=== PATIENT | female | born 2000 | race Caucasian/White ===

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

== ENCOUNTER 2024-02-13 20:44 | Emergency (ER) | payer MEDICAID, SELFPAY ==
[2024-02-13 20:52] VITALS: BP 134/87; PULSE 83; RESP 16; TEMP 36.8; O2SAT 99; BMI 35.4
--- NOTE | 2024-02-13 20:55 | ED.BACK ---
HPI - Back Pain/Injury General Chief Complaint: Back Pain/Injury Stated Complaint: lower back pain Time Seen by Provider: 02/13/24 20:57 Source: patient Mode of arrival: ambulatory Limitations: no limitations History of Present Illness ED Provider: Princess Enriquez PA-C HPI Narrative: 23 yo female presents to the ER for evaluation of lower back pain that started 1 week ago when she woke up. No trauma or injury that she can recall. Pain intermittently shoots down left leg to above the knee. No weakness, numbness, tingling, bowel/bladder incontinence. no urinary symptoms. no relief w/ 200 mg ibuprofen. MD elicited complaint: back pain Onset (ago): week(s) (1) Timing: progressively worsening Severity: moderate Similar Symptoms Previously: No Quality: sharp and spasming Location: left lower back Radiation: left upper leg Exacerbating factors: movement and walking Relieving factors: immobilization Context: unknown Associated symptoms: denies other symptoms Work related injury: No Related Data Previous Rx's ?Medication ?Instructions ?Recorded cyclobenzaprine 10 mg tablet 10 mg PO TID PRN muscle spasm #10 02/13/24 tabs ibuprofen 600 mg tablet 600 mg PO Q8H PRN pain #14 tabs 02/13/24 lidocaine 5 % topical patch 1 patch topical DAILY #15 ea 02/13/24 Allergies Allergy/AdvReac Type Severity Reaction Status Date / Time No Known Allergies Allergy Verified 02/13/24 20:56 [No Known Allergies*] Review of Systems Review of Systems: Yes all other systems are reviewed and are negative Physical Exam Vital Signs: Vital Signs: Last Vital Signs Temp 98.2 F 02/13/24 20:52 Pulse 83 02/13/24 20:52 Resp 16 02/13/24 20:52 BP 134/87 02/13/24 20:52 Pulse Ox 99 02/13/24 20:52 O2 Del Method Room Air 02/13/24 20:52 BMI result Body Mass Index 35.4 Appearance: Alert. Oriented X3. No acute distress. HEENT: normal external inspeciton Neck: Normal inspection. Neck supple. CVS: Normal heart rate and rhythm. Pulses normal. Respiratory: No respiratory distress. Back: normal inspection, soft tissue tenderness of the middle lumbar area on the left side. +SI joint tenderness. normal ROM of the back, pain with flexion. Skin: Skin warm and dry. Normal skin color. Normal skin turgor. No rashes. Extremities: No lower extremity edema. No joint swelling. Neuro/psych: Oriented X 3. No motor deficit. No sensory deficit. CN II-XII intact. Normal speech and cognition. Steady gait. DTR normal Medical Decision Making Medical Decision Making MDM Narrative: 23 yo female presenting with atraumatic LBP x1 week. no red flag symptoms of LBP. exam c/w lumbar strain. will start muscle relaxer, NSAID, lidoderm patches. discusses lower back stretches and return precautions stable for d/c home. Differential Diagnosis Differential Diagnoses: The differential diagnosis associated with the presentation includes Inflammatory disorders, malignancy, trauma, osteoporosis, nerve root compression, radiculopathy, plexopathy, degenerative disc disease, disc herniation, spinal stenosis, sacroiliac joint dysfunction, facet joint injury, and less likely infection?like abscess or diskitis Tests considered The following testing was considered but not selected: considered UA, lumbar XR Prescription Management I considered prescription management with: Pain Medication Chronic Conditions Patient?s care impacted by: Other (obesity) Critical Care Time Critical Care Time Critical Care Time: No Discharge Plan Discharge Clinical Impression: Lumbar strain Qualifiers: Encounter type: initial encounter Qualified Code(s): S39.012A - Strain of muscle, fascia and tendon of lower back, initial encounter Patient Disposition: Home, Self-Care Instructions: Low Back Strain (ED), Lower Back Exercises (ED) Additional Instructions: Your pain is most likely due to muscle strain and spasm. Limit bending, lifting or twisting. Use ice several times per day for 20 minutes at a time for the next 48 hours and then change to heat. Take medications as prescribed to help with pain and discomfort. Follow up with your Primary Care Doctor this week. If your pain worsens, if you develop new numbness, tingling, weakness, loss of function or incontinence call 911 or come back to the ER right away for evaluation. Prescriptions: New cyclobenzaprine 10 mg tablet 10 mg PO TID PRN (Reason: muscle spasm) Qty: 10 0RF ibuprofen 600 mg tablet 600 mg PO Q8H PRN (Reason: pain) Qty: 14 0RF lidocaine 5 % adhesive patch,medicated 1 patch topical DAILY Qty: 15 0RF Rx Instructions: leave on most painful area for up to 12 hrs Referrals: [facility] [Provider Group] [facility] [place] [facility] [Provider Group] [facility] [place] [facility] [[facility] Group] Print Language: [place]
[2024-02-13 21:11] VITALS: BP 134/87; PULSE 83; RESP 16; TEMP 36.8; O2SAT 99
== END 2024-02-13 21:11 | disposition home or self-care (01) ==
PROVIDERS: Emergency Provider Emergency Medicine
DX: S39.012A Strain of muscle, fascia and tendon of lower back, initial encounter (principal); X58.XXXA Exposure to other specified factors, initial encounter; Y93.9 Activity, unspecified; Y92.9 Unspecified place or not applicable; Y99.9 Unspecified external cause status
CPT/HCPCS: 99282; 99283